=== PATIENT | female | born 1995 | race Caucasian/White ===

== ENCOUNTER 2020-10-05 19:52 | Emergency (ER) | payer BC ==
[~2020-10-05] VITALS: Ht 170.2 cm; Wt 124.7 kg
[2020-10-05] MEDS ORDERED: EUTHYROX50 MCG PO (20:10)
[2020-10-05] MEDS ORDERED: ESCI20 PO (20:10)
[2020-10-05] MEDS ORDERED: CLIN300 PO (20:13)
== END 2020-10-05 20:15 | disposition home or self-care (01) ==
LOC: ER 19:52
DX: N61.1 Abscess of the breast and nipple (principal)
CPT/HCPCS: 99282

== ENCOUNTER 2021-02-11 09:10 | Emergency (ER) | payer OTHER ==
[~2021-02-11] VITALS: Ht 170.2 cm; Wt 86.2 kg
[~2021-02-11 09:10] MED LIST: CLIN300 PO; ESCI20 PO; EUTHYROX50 MCG PO
[2021-02-11] MEDS ORDERED: CRUTCH4 XX (11:35)
[2021-02-11] MEDS ORDERED: Norco 5-325 Ta1 EACH PO (11:35)
== END 2021-02-11 12:11 | disposition home or self-care (01) ==
LOC: ER 09:10
DX: M25.571 Pain in right ankle and joints of right foot (principal); W10.9XXA Fall (on) (from) unspecified stairs and steps, initial encounter; Z88.0 Allergy status to penicillin; Z88.2 Allergy status to sulfonamides; Z88.6 Allergy status to analgesic agent; Z88.8 Allergy status to other drugs, medicaments and biological substances
CPT/HCPCS: 29515; 72125; 73590; 96374-59; 96375-59; 99284-25; J1170; J2405

== ENCOUNTER → 2021-10-06 | Outpatient (CLI) | payer OTHER ==
[~2021-10-06] MED LIST changes: +CRUTCH4 XX; +Norco 5-325 Ta1 EACH PO
== END ==
LOC: LAB SHORT 19:06 → LAB 19:06
DX: R30.0 Dysuria (principal)
CPT/HCPCS: 87077; 87086; 87186

== ENCOUNTER → 2022-03-02 | Outpatient (CLI) | payer OTHER | END | disposition home or self-care (01) | LOC: LAB 16:17 → LAB SHORT 16:17 | DX: R35.0 Frequency of micturition (principal) | CPT/HCPCS: 87086 ==

== ENCOUNTER 2022-09-22 14:49 | Emergency (ER) | payer MEDICAID ==
[~2022-09-22] VITALS: Ht 170.2 cm; Wt 127.0 kg
== END 2022-09-22 16:37 | disposition home or self-care (01) ==
LOC: ER 14:49
DX: S93.402A Sprain of unspecified ligament of left ankle, initial encounter (principal); X50.1XXA Overexertion from prolonged static or awkward postures, initial encounter; Z88.0 Allergy status to penicillin; Z88.2 Allergy status to sulfonamides; Z88.5 Allergy status to narcotic agent; Z79.890 Hormone replacement therapy
CPT/HCPCS: 29515; 73610; 81000; 81025; 99284-25; A9270